=== PATIENT | female | born 1950 | race Caucasian/White ===

== ENCOUNTER 2016-08-01 11:07 | Emergency (ER) | payer OTHER ==
[~2016-08-01] VITALS: Wt 59.1 kg
[2016-08-01] MEDS ORDERED: HYDROCODONE/APAP (5/325) TAB PO ONE (12:30)
--- NOTE | 2016-08-01 12:56 | RADRPT ---
PROCEDURE: CT Brain without contrast. CLINICAL INDICATION: Trauma due to a fall 1 week ago. Headache. TECHNIQUE: A CT of the brain without contrast was performed utilizing axial sections from the skul l base through the vertex. The patient was scanned without intravenous contrast enhancement. Sagitta l and coronal reformatted images were obtained using the data from the axial images. Total exam DLP is 720.23 mGy-cm. CTDIvol is 44.95 mGy. One or more of the following dose reduction techniques we re used: Automated exposure control, adjustment of the mA and/or kV according to patient size, use o f iterative reconstruction technique. COMPARISON: None available FINDINGS: There is normal saravia-white matter differentiation. There is mild enlargement of the ventricles and subarachnoid spaces consistent with atrophy. The ve ntricles and cisterns are otherwise normal. There is no intracranial hemorrhage or space-occupying lesion. There is no skull fracture or lytic lesion. IMPRESSION: 1. No intracranial hemorrhage. 2. Mild atrophy. 3. Otherwise normal noncontrast CT scan of the brain. RPTAT: QQ .Kayden Meza MD, Date Time Electronically viewed and signed by .Kayden Meza MD, on 08/01/2016 12:56 .R/
[2016-08-01] MEDS ORDERED: HYDR-906 PO (13:06)
--- NOTE | 2016-08-01 15:03 | ERD ---
ER Documentation Chief Complaint Date/Time DATE: 08/01/16 TIME: 14:58 Chief Complaint ennis s/p fall x1 wks ago, no ko HPI Patient is a 65-year-old female with a history of hyperthyroidism and insomnia and she takes methimazole and Tylenol. She says 1 week ago she fell down and hit her head on a hardwood floor. She did not acutely have pain but she has had pain subsequently for the past 1 week. He has pain in the occipital area of her head and she has pain with head rotation, headache is constant and she has no nausea or vomiting no ALOC she did not pass out. 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 She had polio in 1953 and has had polio symptoms since then. ROS All systems reviewed and are negative except as per history of present illness. Medications Home Meds Active Scripts Hydrocodone/Acetaminophen ([place] 5-325 Tablet) 1 Each Tablet, 1 TAB PO Q6H Y for PAIN, #12 TAB Prov:ANIYA AGUERO DO 08/01/16 Allergies Allergies: Coded Allergies: No Known Allergy (Unverified , 08/01/16) PMhx/Soc Hx Miscellaneous Medical Probl: Yes (polio, thyroid) Physical Exam Vitals Vital Signs Date Time Temp Pulse Resp B/P Pulse Ox O2 Delivery O2 Flow Rate FiO2 08/01/16 11:24 98.7 85 20 157/70 98 Physical Exam Const: Wheelchair. Head: Atraumatic mild tenderness to palpation in the occipital scalp, no hematoma negative raccoon eyes negative Martinez sign no hematotympanum Eyes: The left eye has diffuse cataracts in the pupil. ENT: Normal External Ears, Nose and Mouth. They are within normal limits. Neck: Full range of motion..~ No meningismus. No neck bony tenderness to palpation. Resp: Clear to auscultation bilaterally Cardio: Regular rate and rhythm, no murmurs Abd: Soft, non tender, non distended. Normal bowel sounds Skin: No petechiae or rashes Back: No midline or flank tenderness Ext: No cyanosis, or edema Neur: Awake and alert, she is in a wheelchair. Psych: Normal Mood and Affect Results 24 hrs Current Medications Medications (Trade) Dose Ordered Sig/[place] Route PRN Reason Start Time Stop Time Status Last Admin Dose Admin Acetaminophen/ Hydrocodone Bitart ([place] (5/325)) 1 tab ONCE ONCE PO 08/01/16 12:30 08/01/16 12:31 DC 08/01/16 12:13 [place] [id number] Radiology Main Line: [phone] DIAGNOSTIC IMAGING REPORT Patient: SUZY ZHENG : 1950 Age: 65 Sex: F MR #: [id number] DOS: 08/01/16 0000 Ordering MD: ANIYA AGUERO DO Location: [facility] Room/Bed: PROCEDURE: CT Brain without contrast. CLINICAL INDICATION: Trauma due to a fall 1 week ago. Headache. TECHNIQUE: A CT of the brain without contrast was performed utilizing axial sections from the skull base through the vertex. The patient was scanned without intravenous contrast enhancement. Sagittal and coronal reformatted images were obtained using the data from the axial images. Total exam DLP is 720.23 mGy-cm. CTDIvol is 44.95 mGy. One or more of the following dose reduction techniques were used: Automated exposure control, adjustment of the mA and/or kV according to patient size, use of iterative reconstruction technique. COMPARISON: None available FINDINGS: There is normal saravia-white matter differentiation. There is mild enlargement of the ventricles and subarachnoid spaces consistent with atrophy. The ventricles and cisterns are otherwise normal. There is no intracranial hemorrhage or space-occupying lesion. There is no skull fracture or lytic lesion. IMPRESSION: 1. No intracranial hemorrhage. 2. Mild atrophy. 3. Otherwise normal noncontrast CT scan of the brain. RPTAT: QQ .Kayden Meza MD, MD Date Time Electronically viewed and signed by .Kayden Meza MD, MD on 08/01/2016 12:56 .R/ CC: ANIYA AGUERO DO Procedures/MDM CAT scan of the head shows no acute intracranial abnormality and no hemorrhage. I doubt cervical bony fracture. I doubt intracranial hemorrhage. He has no neurological deficits that are acute. Gave her [place] here and will give her [place] for home and she should follow-up with her primary doctor. This is likely a posttraumatic headache. Differential includes scalp hematoma or intracranial hemorrhage or cervical bony fracture or intracranial mass or subdural hematoma or other. Departure Diagnosis: Primary Impression: Post-traumatic headache Headache chronicity pattern: acute headache Intractability: intractable Qualified Code: G44.311 - Intractable acute post-traumatic headache Condition: Stable Patient Instructions: Self-Care for Headaches ANIYA AGUERO DO Aug 01, 2016 15:02
== END 2016-08-01 13:15 | disposition home or self-care (01) ==
LOC: FTE 11:07
DX: G44.311 Acute post-traumatic headache, intractable (principal)
CPT/HCPCS: 70450; Z7502; Z7610